=== PATIENT | female | born 1960 | race Caucasian/White ===

== ENCOUNTER 2020-01-05 10:52 | Outpatient (CLI) | payer BC ==
--- NOTE | 2020-01-05 13:22 | ULT ---
BILATERAL BREAST ULTRASOUND: Date: 01/05/2020 PROVIDED CLINICAL HISTORY: History of breast cancer. Status post bilateral mastectomy and textured breast implant reconstruction . FINDINGS: Limited sonographic interrogation was performed about the left breast implant, right breast implant, and left axilla. There is abnormal simple appearing fluid seen superficial to the left breast implant, particularly at the 8 and 9 o'clock positions. There is a small amount of fluid present superficial the right breast implant. The sonographic appearance of the left axilla is normal. IMPRESSION: Fluid about left greater than right breast implants is abnormal. 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 Surgical consultation is recommended. Results and recommendations discussed with the patient and questions answered. POS: OFF
== END 2020-01-05 10:53 | disposition home or self-care (01) ==
LOC: BICULT 10:52
PROVIDERS: ATTEND Internal Medicine Hematology & Oncology
DX: C77.3 Secondary and unspecified malignant neoplasm of axilla and upper limb lymph nodes (principal); C79.2 Secondary malignant neoplasm of skin; C50.819 Malignant neoplasm of overlapping sites of unspecified female breast; I10 Essential (primary) hypertension; Z98.82 Breast implant status

== ENCOUNTER 2023-03-17 08:45 | Outpatient (CLI) | payer BC | END 2023-03-17 08:46 | disposition home or self-care (01) | LOC: PET 08:45 | PROVIDERS: ATTEND Internal Medicine Hematology & Oncology | DX: C18.7 Malignant neoplasm of sigmoid colon (principal); C50.112 Malignant neoplasm of central portion of left female breast | CPT/HCPCS: 78815; A9552 ==

== ENCOUNTER 2023-10-01 08:00 | Outpatient (CLI) | payer MEDICARE | END 2023-10-01 08:01 | disposition home or self-care (01) | LOC: PET 08:00 | PROVIDERS: ATTEND Internal Medicine Hematology & Oncology | DX: C50.112 Malignant neoplasm of central portion of left female breast (principal); C18.7 Malignant neoplasm of sigmoid colon | CPT/HCPCS: 78815; A9552 ==

== ENCOUNTER 2024-04-22 10:00 | Day surgery (SDC) | payer MEDICARE ==
[~2024-04-22 10:00] MED LIST: diphenhydrAMINE 25 MG CAP PO SCH
[2024-04-22] MEDS ORDERED: Acetaminophen 500 MG TAB ONE (10:13)
[2024-04-22] MEDS: Acetaminophen 500 MG TAB PO SCH (10:14)
[2024-04-22 12:56] VITALS: BP 96/60; TEMP 97.6
== END 2024-04-22 12:52 | disposition home or self-care (01) ==
LOC: ONC/OP 10:00
PROVIDERS: ATTEND Internal Medicine Hematology & Oncology
DX: D64.9 Anemia, unspecified (principal); D69.6 Thrombocytopenia, unspecified
CPT/HCPCS: 36430; 86850; 86900; 86901; 86920; J1642; P9016

== ENCOUNTER 2024-05-23 16:01 | Inpatient (IN) | payer MEDICARE ==
[2024-05-23 16:46] LABS: Hematocrit 14.3 % (36.0-47.0); Hemoglobin 4.7 g/dL (12.0-16.0); Mean Corpuscular HGB CONC 32.9 g/dL (32.0-36.0); Mean Corpuscular Hemoglobin 31.8 pg (27.0-31.0); Mean Corpuscular Volume 96.6 fL (78.0-98.0); Mean Platelet Volume 10.6 fL (7.4-10.4); Platelet Count 178 10x3/uL (130-400); RBC Distribution Width 24.5 % (11.5-14.5); Red Blood Cell (RBC) Count 1.48 mill/uL (4.20-5.40)
[2024-05-23 16:51] LABS: #Basophils Less than 0.03 10x3/uL (0.0-0.2); #Eosinphils Less than 0.03 10x3/uL (0.0-0.7); %Lymphocytes 8.1 % (21.0-51.0); %Neutrophils 81.5 % (42.0-75.0); ALT (SGPT) 22 U/L (8-55); AST (SGOT) 24 U/L (5-34); Albumin 1.9 g/dL (3.4-4.8); Alkaline Phosphatase 275 U/L (40-110); Anion Gap 10 mmol/L (10-20); BUN (Urea Nitrogen) 34 mg/dL (9.8-20.1); Bilirubin, Total 0.6 mg/dL (0.2-1.2); Calc. Creatinine Clearance 0 mL/min (70-130); Calcium 7.2 mg/dL (7.8-10.44); Carbon Dioxide 22 mmol/L (23-31); Chloride 95 mmol/L (98-107); Estimated GFR 95; Globulin 2.2 g/dL (2.4-3.5); Glucose 126 mg/dL (80-115); Lipase 32 U/L (8-78); Potassium 4.4 mmol/L (3.5-5.1); Protein, Total 4.1 g/dL (5.8-8.1); Sodium 123 mmol/L (136-145)
[2024-05-23 17:07] LABS: Troponin I Less than 0.010 ng/mL (< 0.028)
[2024-05-23] MEDS ORDERED: Ondansetron PF 4 MG/2 ML Vial IVP PRN (18:48)
[2024-05-23] MEDS ORDERED: Acetaminophen 650 MG Suppository PR PRN (18:48)
[2024-05-23] MEDS ORDERED: Ondansetron ODT 4 MG TAB PO PRN (18:48)
[2024-05-23] MEDS ORDERED: Lidocaine 4% Patch TD SCH (21:45)
[2024-05-23] MEDS: Lidocaine 4% Patch TD SCH (22:08)
[2024-05-23] MEDS: Pantoprazole 40 MG VIAL IVP SCH (22:08)
[2024-05-24] MEDS ORDERED: Sodium Chloride 0.9% 1,000 ML IV SCH (00:30)
[2024-05-24 00:46] VITALS: BMI 22.3
[2024-05-24] MEDS: Sodium Chloride 0.9% 1,000 ML IV SCH ×2 (00:58→09:14)
[2024-05-24] MEDS: Acetaminophen 325 MG TAB PO PRN (02:32)
[2024-05-24 02:48] LABS: Bacteria/HPF None Seen HPF (None Seen); Bilirubin Negative (Negative); Blood, Urine Negative (Negative); CAUTI Indications for Culture Alt mental st,lethar; Clarity Clear (Clear); Glucose, Urine (Dipstick) Normal (Negative); Ketone, Urine Negative (Negative); Leukocyte Negative Leu/uL (Negative); Nitrite Negative (Negative); Protein, Urine (Dipstick) 10 mg/dL (Neg-Trace); RBC/HPF 0-3 HPF (0-3); Specific Gravity, Urine 1.022 (1.002-1.036); Squamous Epithelial None Seen HPF (0-3); WBC/HPF 0-3 HPF (0-3); pH, Urine 6.5 (5.0-9.0)
[2024-05-24 02:49] LABS: #Basophils Less than 0.03 10x3/uL (0.0-0.2); #Eosinphils Less than 0.03 10x3/uL (0.0-0.7); %Eosinophils 0.1 % (0.0-10.0); %Lymphocytes 8.3 % (21.0-51.0); %Monocytes 9.8 % (0.0-10.0); %Neutrophils 80.4 % (42.0-75.0); Hematocrit 23.4 % (36.0-47.0); Mean Corpuscular HGB CONC 34.2 g/dL (32.0-36.0); Mean Corpuscular Hemoglobin 32.1 pg (27.0-31.0); Mean Platelet Volume 10.9 fL (7.4-10.4); Platelet Count 109 10x3/uL (130-400); RBC Distribution Width 17.2 % (11.5-14.5); Red Blood Cell (RBC) Count 2.49 mill/uL (4.20-5.40)
[2024-05-24 02:50] LABS: INR-International Normal Ratio 1.7; PTT 29.7 sec (22.9-36.1); Prothrombin Time 20.1 sec (12.0-14.7)
[2024-05-24 02:50] LABS: Urine Culture Reflex No No
[2024-05-24 04:30] LABS: Lactic Acid 1.2 mmol/L (0.5-2.2)
[2024-05-24 05:12] LABS: Anion Gap 12 mmol/L (10-20); BUN (Urea Nitrogen) 28 mg/dL (9.8-20.1); Calc. Creatinine Clearance 85 mL/min (70-130); Calcium 7.2 mg/dL (7.8-10.44); Carbon Dioxide 24 mmol/L (23-31); Chloride 96 mmol/L (98-107); Estimated GFR 99; Glucose 84 mg/dL (80-115); Potassium 3.9 mmol/L (3.5-5.1); Sodium 128 mmol/L (136-145)
[2024-05-24] MEDS: Levothyroxine 150 MCG TAB PO SCH (05:13)
[2024-05-24 06:28] LABS: Anion Gap 9 mmol/L (10-20); BUN (Urea Nitrogen) 30 mg/dL (9.8-20.1); Calc. Creatinine Clearance 86 mL/min (70-130); Calcium 7.1 mg/dL (7.8-10.44); Carbon Dioxide 22 mmol/L (23-31); Chloride 98 mmol/L (98-107); Estimated GFR 99; Glucose 78 mg/dL (80-115); Potassium 3.7 mmol/L (3.5-5.1); Sodium 125 mmol/L (136-145)
[2024-05-24 07:00] LABS: #Basophils Less than 0.03 10x3/uL (0.0-0.2); #Eosinphils Less than 0.03 10x3/uL (0.0-0.7); %Eosinophils 0.2 % (0.0-10.0); %Lymphocytes 7.3 % (21.0-51.0); %Monocytes 8.8 % (0.0-10.0); %Neutrophils 82.7 % (42.0-75.0); Hematocrit 22.8 % (36.0-47.0); Hemoglobin 7.9 g/dL (12.0-16.0); Mean Corpuscular HGB CONC 34.6 g/dL (32.0-36.0); Mean Corpuscular Hemoglobin 32.6 pg (27.0-31.0); Mean Corpuscular Volume 94.2 fL (78.0-98.0); Mean Platelet Volume 10.1 fL (7.4-10.4); Platelet Count 92 10x3/uL (130-400); RBC Distribution Width 17.8 % (11.5-14.5); Red Blood Cell (RBC) Count 2.42 mill/uL (4.20-5.40)
[2024-05-24] MEDS ORDERED: BIOTIN PO SCH (09:00)
[2024-05-24] MEDS ORDERED: KERATIN PO SCH (09:00)
[2024-05-24] MEDS: K-Phos Neutral 250 MG TAB PO SCH (09:05)
[2024-05-24] MEDS: Cholecalciferol 1,000 UNITS (25 MCG) TAB PO SCH (09:05)
[2024-05-24] MEDS: Cyanocobalamin (Vitamin B-12) 1,000 MCG TAB PO SCH (09:05)
[2024-05-24] MEDS: Sodium Chloride 1 GM TAB PO SCH (09:05)
[2024-05-24] MEDS: Dexamethasone 1 MG TAB PO SCH (09:05)
[2024-05-24] MEDS: Leflunomide 10 mg Tablet PO SCH (09:06)
[2024-05-24] MEDS: Transdermal Patch Removal TOP SCH (09:13)
[2024-05-24 10:53] VITALS: BMI 22.3
[2024-05-24] MEDS: Lidocaine 4% Patch TD SCH (11:54)
[2024-05-24] MEDS: Sodium Chloride 0.9% 500 ML IV SCH (23:02)
[2024-05-24] MEDS: Melatonin 3 MG TAB PO SCH (23:32)
[2024-05-25] MEDS: Phenazopyridine HCl 100 MG TAB PO SCH ×2 (01:28→08:50)
[2024-05-25] MEDS: Melatonin 3 MG TAB PO PRN (04:22)
[2024-05-25 04:49] LABS: #Basophils Less than 0.03 10x3/uL (0.0-0.2); #Eosinphils Less than 0.03 10x3/uL (0.0-0.7); %Basophils 0.1 % (0.0-1.0); %Eosinophils 0.1 % (0.0-10.0); %Lymphocytes 4.1 % (21.0-51.0); %Monocytes 7.5 % (0.0-10.0); %Neutrophils 87.6 % (42.0-75.0); Hematocrit 25.7 % (36.0-47.0); Hemoglobin 8.9 g/dL (12.0-16.0); Mean Corpuscular HGB CONC 34.6 g/dL (32.0-36.0); Mean Corpuscular Hemoglobin 30.5 pg (27.0-31.0); Mean Platelet Volume 10.6 fL (7.4-10.4); Platelet Count 87 10x3/uL (130-400); RBC Distribution Width 22.2 % (11.5-14.5); Red Blood Cell (RBC) Count 2.92 mill/uL (4.20-5.40)
[2024-05-25 05:07] LABS: Anion Gap 13 mmol/L (10-20); BUN (Urea Nitrogen) 23 mg/dL (9.8-20.1); Calc. Creatinine Clearance 88 mL/min (70-130); Calcium 7.2 mg/dL (7.8-10.44); Carbon Dioxide 21 mmol/L (23-31); Chloride 98 mmol/L (98-107); Estimated GFR 100; Glucose 138 mg/dL (80-115); Phosphorus 2.3 mg/dL (2.3-4.7); Potassium 3.7 mmol/L (3.5-5.1); Sodium 128 mmol/L (136-145)
[2024-05-25 07:39] VITALS: TEMP 98
[2024-05-25] MEDS ORDERED: Transdermal Patch Removal TOP SCH (09:00)
[2024-05-25 11:43] VITALS: BP 95/65
[2024-05-25] MEDS ORDERED: Lidocaine 4% Patch TD SCH (21:00)
== END 2024-05-25 13:11 | disposition hospice, home (50) | DRG 811 ==
LOC: ERS 16:01 → 2NO 18:33
PROVIDERS: ADMIT Hospitalist; ATTEND Internal Medicine
PROC: 30233N1 Transfusion of Nonautologous Red Blood Cells into Peripheral Vein, Percutaneous Approach (ICD-10-PCS; principal; 2024-05-23)
DX: D64.9 Anemia, unspecified (principal); E43 Unspecified severe protein-calorie malnutrition; I81 Portal vein thrombosis; E87.20 Acidosis, unspecified; E87.1 Hypo-osmolality and hyponatremia; J91.8 Pleural effusion in other conditions classified elsewhere; R64 Cachexia; C25.9 Malignant neoplasm of pancreas, unspecified; R18.8 Other ascites; K62.5 Hemorrhage of anus and rectum; C18.9 Malignant neoplasm of colon, unspecified; C18.7 Malignant neoplasm of sigmoid colon; E03.9 Hypothyroidism, unspecified; I95.9 Hypotension, unspecified; Z66 Do not resuscitate; J45.20 Mild intermittent asthma, uncomplicated; Z85.038 Personal history of other malignant neoplasm of large intestine; Z92.21 Personal history of antineoplastic chemotherapy; Z90.49 Acquired absence of other specified parts of digestive tract; Z51.5 Encounter for palliative care; Z68.22 Body mass index [BMI] 22.0-22.9, adult; Z92.3 Personal history of irradiation; Z79.899 Other long term (current) drug therapy; Z79.52 Long term (current) use of systemic steroids; Z79.890 Hormone replacement therapy; Z90.13 Acquired absence of bilateral breasts and nipples; Z85.3 Personal history of malignant neoplasm of breast; Z79.01 Long term (current) use of anticoagulants; Z71.3 Dietary counseling and surveillance; C50.112 Malignant neoplasm of central portion of left female breast; D70.8 Other neutropenia
CPT/HCPCS: 36415; 36430; 71045; 80048; 80053; 81001; 82248; 82378; 83605; 83615; 83690; 83735; 83880; 83930; 83935; 84100; 84300; 84484; 84550; 85025; 85060; 85610; 85730; 86850; 86900; 86901; 93005; C9113; J1642; J7050; P9016